=== PATIENT | male | born 1970 | race Caucasian/White ===

== ENCOUNTER 2016-11-20 19:37 | Emergency (ER) | payer OTHER ==
[2016-11-20] MEDS ORDERED: TORAdol 30 mg Injection IM ONE (20:11)
[2016-11-20] MEDS ORDERED: TORAdol 30 mg Injection ONE (20:13)
--- NOTE | 2016-11-20 20:14 | ERPHSYRPT ---
- History of Present Illness Time Seen by Provider: 11/20/16 20:08 Source: patient Patient Subjective Stated Complaint: Pt sts rt shoulder pain radiating into rt upper arm x 1.5 weeks. Pt denies specific trauma or injury. Pt describes as an ache. Rates pain 8/10. Pt sts decreased ROM due to pain. Triage Nursing Assessment: Pt alert, oriented, answers all questions appropriately. Skin p/w/d, resps non-labored. Pt ambulatory, steady gait noted. No obvious deformity noted. + radial pulses noted bilat. 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 He has one week hx of right shoulder pain. No specific fall or injury but pain worse with movement of the shoulder. No chest pain, cough, dyspnea. No fever or chills. He called to see Dr Yarbrough but no appt until end of month so he came here. He drove himself here. No hx of shoulder problems. No allergies. Occurred: last week Extremities Pain Location: shoulder: right Allergies/Adverse Reactions: No Known Drug Allergies Allergy (Unverified 11/20/16 20:13) Hx Tetanus, Diphtheria Vaccination/Date Given: Yes Hx Influenza Vaccination/Date Given: No Hx Pneumococcal Vaccination/Date Given: No - Review of Systems Constitutional: No Fever, No Chills Respiratory: No Cough, No Dyspnea Cardiac: No Chest Pain Musculoskeletal: Joint Pain (right shoulder), No Back Pain, No Neck Pain, No Injury Skin: No Rash Neurological: No Focal Weakness, No Headache, No Parasthesia - Past Medical History Pertinent Past Medical History: No - Past Surgical History Past Surgical History: Yes Gastrointestinal: Appendectomy, Hernia Repair Other Surgical History: ankle, wrist, fingers - Social History Smoking Status: Current every day smoker How long have you smoked: 20 yrs Exposure to second hand smoke: No Drug Use: none Patient Lives Alone: Yes - Nursing Vital Signs Nursing Vital Signs: Initial Vital Signs Temperature 98.7 F Temperature Source Oral Pulse Rate 84 Respiratory Rate 16 Blood Pressure 135/97 Pain Intensity 7 - Physical Exam General Appearance: alert Eyes, Ears, Nose, Throat Exam: moist mucous membranes Cardiovascular/Respiratory Exam: chest non-tender, normal breath sounds, regular rate/rhythm Abdominal Exam: non-tender, soft Back Exam: normal inspection, No vertebral tenderness Shoulder Exam: normal inspection, normal ROM (but painful), soft tissue tenderness (right shoulder) Elbow/Forearm Exam: normal inspection, non-tender Wrist Exam: normal inspection, non-tender Hand Exam: normal inspection, non-tender Neuro/Tendon Exam: normal sensation, normal motor functions Mental Status Exam: alert, oriented x 3, cooperative Skin Exam: warm, dry, No rash SpO2 Interpretation: normal SpO2: 100 Oxygen Delivery: Room Air - Course Nursing assessment & vital signs reviewed: Yes - Radiology Exams right shoulder X-ray Interpretation: Reviewed by me, Negative Ordered Tests: Active Orders 24 hr Category Date Time Status Cold Application STAT Care 11/20/16 20:11 Active SHOULDER Stat Exams 11/20/16 20:11 Taken Medication Summary Discontinued Medications Generic Name Dose Route Start Last Admin Trade Name Mikael PRN Reason Stop Dose Admin Ketorolac Tromethamine 60 mg 11/20/16 20:11 11/20/16 20:15 Toradol 30 Mg Injection IM 11/20/16 20:12 60 mg STAT ONE Administration Ketorolac Tromethamine Confirm 11/20/16 20:13 Toradol 30 Mg Injection Administered 11/20/16 20:14 Dose 60 mg .ROUTE .STK-MED ONE - Progress Progress Note: 11/20/16 21:10 The patient likely has some rotator cuff injury chronically but worse. Advised follow up to consider PT, ortho, or MRI. Rx motrin and norflex. Instr given. Counseled pt/family regarding: diagnosis, need for follow-up, rad results - Departure Time of Disposition: 21:10 Departure Disposition: Home Clinical Impression: Pain in right shoulder Qualifiers: Chronicity: unspecified Qualified Code(s): M25.511 - Pain in right shoulder Condition: Stable Critical Care Time: No Referrals: FELICIA BRANHAM [Primary Care Provider] - Instructions: Shoulder Pain Additional Instructions: No heavy lifting with right arm. Ice packs off and on. Rx motrin=ibuprofen. Rx norflex for muscle relaxer- no driving or operating machinery. Prescriptions: Ibuprofen 600 mg PO Q6H PRN PRN #24 tablet PRN Reason: Pain Orphenadrine Citrate 100 mg [Norflex 100 MG Tablet] 1 tab PO BID #10 tab
[2016-11-20] MEDS ORDERED: Norflex 100 MG Tablet PO ONE (21:09)
[2016-11-20 21:13] VITALS: O2SAT 100
[2016-11-20 21:27] VITALS: BP 129/70; PULSE 72
--- NOTE | 2016-11-21 08:35 | XRAY ---
Indication: Right shoulder pain for one week. No known injury. Comparison: None 3 views of the right shoulder demonstrate mild AC degenerative arthropathy. No other bony, articular, or soft tissue abnormalities.
== END 2016-11-20 21:27 | disposition home or self-care (01) ==
LOC: ED 19:37
DX: M25.511 Pain in right shoulder (principal)
CPT/HCPCS: 73030; 96372; 99283; J1885

== ENCOUNTER 2016-12-20 10:53 | Emergency (ER) | payer OTHER ==
[2016-12-20] MEDS ORDERED: Zofran 4 MG/2 ML VIAL IV ONE (11:17)
[2016-12-20] MEDS ORDERED: BENADRYL 50 MG/ML IV ONE (11:17)
[2016-12-20] MEDS ORDERED: Sodium Chloride 0.9% 1000 ML 1,000 ML IV STA (11:17)
[2016-12-20] MEDS ORDERED: TORAdol 30 mg Injection IV ONE (11:17)
[2016-12-20] MEDS ORDERED: Zofran 4 MG/2 ML VIAL ONE (11:27)
[2016-12-20] MEDS ORDERED: Sodium Chloride 0.9% 1000 ML 1,000 ML ONE (11:27)
[2016-12-20] MEDS ORDERED: TORAdol 30 mg Injection ONE (11:27)
[2016-12-20] MEDS ORDERED: BENADRYL 50 MG/ML ONE (11:27)
--- NOTE | 2016-12-20 11:28 | ERPHSYRPT ---
- History of Present Illness Time Seen by Provider: 12/20/16 11:12 Historian: patient Exam Limitations: clinical condition Patient Subjective Stated Complaint: LEFT SIDED FLANK PAIN/ LEFT SIDED ABD PAIN. Triage Nursing Assessment: ALERT X 3, RESPIRATIONS EVEN, NONLABORED, LEFT SIDED ABD TENDER WITH PALIPATION, BOWEL SOUNDS PRESENT IN ALL FOUR QUADS. Physician History: PATIENT WITH HISTORY OF KIDNEY STONES, EVALUATED AT [facility] LAST NIGHT WITH KIDNEY STONES. HAS ASSOCIATED NAUSEA. HAS PRESCRIPTIONS FOR MOTRIN, FLOMAX, UNABLE TO FILL PRESCRIPTION OF NORCO, HAD NO PHYSICIAN'S SIGNATURE. Timing/Duration: yesterday Quality: sharpness Abdominal Pain Onset Location: flank Pain Radiation: no radiation Severity of Pain-Max: severe Severity of Pain-Current: severe Modifying Factors: Improves With: nothing Associated Symptoms: denies symptoms Previous symptoms: same symptoms as today Allergies/Adverse Reactions: No Known Drug Allergies Allergy (Unverified 11/20/16 20:13) Hx Tetanus, Diphtheria Vaccination/Date Given: Yes Hx Influenza Vaccination/Date Given: No Hx Pneumococcal Vaccination/Date Given: No Immunizations Up to Date: Yes - Review of Systems Constitutional: No Fever, No Chills Eyes: No Symptoms Ears, Nose, & Throat: No Symptoms Respiratory: No Cough, No Dyspnea Cardiac: No Chest Pain, No Edema, No Syncope Abdominal/Gastrointestinal: No Abdominal Pain, No Nausea, No Vomiting, No Diarrhea Genitourinary Symptoms: Flank Pain, No Dysuria Musculoskeletal: No Symptoms, No Back Pain, No Neck Pain Skin: No Symptoms, No Rash Neurological: No Dizziness, No Focal Weakness, No Sensory Changes Psychological: No Symptoms Endocrine: No Symptoms All Other Systems: Reviewed and Negative - Past Medical History Pertinent Past Medical History: No Neurological History: No Pertinent History ENT History: No Pertinent History Cardiac History: No Pertinent History Respiratory History: No Pertinent History Endocrine Medical History: No Pertinent History Musculoskeletal History: No Pertinent History GI Medical History: No Pertinent History History: No Pertinent History Psycho-Social History: No Pertinent History Male Reproductive Disorders: No Pertinent History Other Medical History: KIDNEY STONES - Past Surgical History Past Surgical History: Yes Neuro Surgical History: No Pertinent History Cardiac: No Pertinent History Respiratory: No Pertinent History Gastrointestinal: Appendectomy, Hernia Repair Genitourinary: No Pertinent History Musculoskeletal: No Pertinent History Male Surgical History: No Pertinent History Other Surgical History: RIGHT ankle, RIGHT wrist, fingers - Social History Smoking Status: Current every day smoker How long have you smoked: 20 yrs Exposure to second hand smoke: No Drug Use: none Patient Lives Alone: Yes - Nursing Vital Signs Nursing Vital Signs: Initial Vital Signs Temperature 97.4 F Temperature Source Oral Pulse Rate 88 Respiratory Rate 18 Blood Pressure [] 133/69 Pain Intensity 10 - Physical Exam General Appearance: no apparent distress, alert Eye Exam: PERRL/EOMI, eyes nml inspection Ears, Nose, Throat Exam: normal ENT inspection, pharynx normal, moist mucous membranes Neck Exam: normal inspection, non-tender, supple, full range of motion Respiratory Exam: normal breath sounds, lungs clear, No respiratory distress Cardiovascular Exam: regular rate/rhythm, normal heart sounds Gastrointestinal/Abdomen Exam: soft, normal bowel sounds, tenderness (ADJACENT TO ANTERIOR ASPECT LEFT CVA), No mass Back Exam: normal inspection, normal range of motion, CVA tenderness (THERE IS LEFT CVA TENDERNESS), No vertebral tenderness Extremity Exam: normal inspection, normal range of motion, pelvis stable Neurologic Exam: alert, oriented x 3, cooperative, normal mood/affect, nml cerebellar function, sensation nml, No motor deficits Skin Exam: normal color, warm, dry Lymphatic Exam: adenopathy SpO2 Interpretation: normal SpO2: 97 Oxygen Delivery: Room Air - Course EKG Interpreted by Me: RATE, Sinus Rhythm, NORMAL AXIS - CT Exams Abdomen/Pelvis CT Interpretation: Discussed w/radiologist (FLUID DISTENDED STOMACH AND BOWEL LOOPS WITH FLUID LEVELING. R/O ILEUS VERSUS GASTROENTROCOLITIS. TINY CUL-DE- SAC FLUID PRESUMED PHYSIOLOGIC FROM RUPTURED/ LEAKING CYST, STABLE RIGHT LOBE HEPATIC HEMANAGIOMA) Ordered Tests: Active Orders 24 hr Category Date Time Status IV Insertion STAT Care 12/20/16 11:17 Active Oxygen-ED Only NASAL CANNULA 2 lpm Care 12/20/16 11:55 Active BMP Stat Lab 12/20/16 11:15 Completed CBC W DIFF Stat Lab 12/20/16 11:15 Completed UA W/ MICROSCOPIC Stat Lab 12/20/16 11:18 Completed Urine Triage Profile Stat Lab 12/20/16 11:21 Completed Medication Summary Discontinued Medications Generic Name Dose Route Start Last Admin Trade Name Freq PRN Reason Stop Dose Admin Diphenhydramine HCl 25 mg 12/20/16 11:17 12/20/16 11:28 Benadryl 50 Mg/Ml IV 12/20/16 11:18 25 mg STAT ONE Administration Diphenhydramine HCl Confirm 12/20/16 11:27 Benadryl 50 Mg/Ml Administered 12/20/16 11:28 Dose 50 mg .ROUTE .STK-MED ONE Hydromorphone HCl 1 mg 12/20/16 11:55 12/20/16 12:03 Dilaudid 1 Mg/Ml Injection IV 12/20/16 11:56 1 mg STAT ONE Administration Hydromorphone HCl Confirm 12/20/16 12:03 Dilaudid 1 Mg/Ml Injection Administered 12/20/16 12:04 Dose 1 mg .ROUTE .STK-MED ONE Hydromorphone HCl 1 mg 12/20/16 13:58 12/20/16 14:02 Dilaudid 1 Mg/Ml Injection IV 12/20/16 13:59 1 mg STAT ONE Administration Hydromorphone HCl Confirm 12/20/16 14:02 Dilaudid 1 Mg/Ml Injection Administered 12/20/16 14:03 Dose 1 mg .ROUTE .STK-MED ONE Sodium Chloride 1,000 mls @ 999 mls/hr 12/20/16 11:17 12/20/16 11:28 Sodium Chloride 0.9% 1000 Ml IV 12/20/16 12:17 999 mls/hr .Q1H1M STA Administration Sodium Chloride Confirm 12/20/16 11:27 Sodium Chloride 0.9% 1000 Ml Administered 12/20/16 11:28 Dose 1,000 mls @ ud .ROUTE .STK-MED ONE Ketorolac Tromethamine 30 mg 12/20/16 11:17 12/20/16 11:28 Toradol 30 Mg Injection IV 12/20/16 11:18 30 mg STAT ONE Administration Ketorolac Tromethamine Confirm 12/20/16 11:27 Toradol 30 Mg Injection Administered 12/20/16 11:28 Dose 30 mg .ROUTE .STK-MED ONE Ondansetron HCl 4 mg 12/20/16 11:17 12/20/16 11:28 Zofran 4 Mg/2 Ml Vial IV 12/20/16 11:18 4 mg STAT ONE Administration Ondansetron HCl Confirm 12/20/16 11:27 Zofran 4 Mg/2 Ml Vial Administered 12/20/16 11:28 Dose 4 mg .ROUTE .K-MED ONE Lab/Rad Data: Laboratory Result Diagrams 12/20/16 11:15 12/20/16 11:15 Laboratory Results 12/20/16 12/20/16 12/20/16 Range/Units 11:21 11:18 11:15 WBC (4.0-10.5) K/mm3 RBC (4.1-5.6) M/mm3 Hgb (12.5-18.0) gm/dl Hct (42-50) % MCV (78-100) fl MCH (26-32) pg MCHC (32-36) g/dl RDW (11.5-14.0) % Plt Count (150-450) K/mm3 MPV (6-9.5) fl Gran % (36.0-66.0) % Lymphocytes % (24.0-44.0) % Monocytes % (0.0-12.0) % Eosinophils % (0.00-5.0) % Basophils % (0.0-0.4) % Basophils # (0-0.4) Sodium 141 (136-145) mEq/L Potassium 3.9 (3.5-5.1) mEq/L Chloride 103 (98-107) mEq/L Carbon Dioxide 26.8 (21-32) mEq/L Anion Gap 14.8 (5-15) MEQ/L BUN 20 (9-20) mg/dL Creatinine 1.58 H (0.55-1.30) mg/dl Estimated GFR 50 ML/MIN Glucose 117 H (70-110) MG/DL Calcium 8.8 (8.5-10.1) mg/dL Ur Collection Type VOID Urine Color YELLOW (YELLOW) Urine Appearance HAZY (CLEAR) Urine pH 6.0 (5-6) Ur Specific [place] 1.025 (1.005-1.025) Urine Protein 30 (Negative) Urine Glucose (UA) NEGATIVE (NEGATIVE) mg/dL Urine Ketones NEGATIVE (NEGATIVE) Urine Nitrite NEGATIVE (NEGATIVE) Urine Bilirubin NEGATIVE (NEGATIVE) Urine Urobilinogen 0.2 (0-1) mg/dL Urine WBC (Auto) NEGATIVE (NEGATIVE) Urine RBC (Auto) TRACE-LYSED (0-5) Bunny/ul Urine Microscopic RBC 2-5 (0-2) /HPF Urine Microscopic WBC 2-5 (0-5) /HPF Ur Epithelial Cells FEW (FEW) /HPF Urine Bacteria FEW (NEGATIVE) /HPF Urine Mucus MODERATE (NEGATIVE) /HPF Urine Opiates Level POS. (NEGATIVE) Ur Methadone NEG. (NEGATIVE) Urine Barbiturates NEG. (NEGATIVE) Ur Phencyclidine (PCP) NEG. (NEGATIVE) Urine Amphetamine POS. (NEGATIVE) U Benzodiazepine Level NEG. (NEGATIVE) Urine Cocaine NEG. (NEGATIVE) Urine Marijuana (THC) NEG. (NEGATIVE) Specimen Received 12/20/16 1130 12/20/16 Range/Units 11:15 WBC 11.8 H (4.0-10.5) K/mm3 RBC 5.27 (4.1-5.6) M/mm3 Hgb 15.5 (12.5-18.0) gm/dl Hct 47.8 (42-50) % MCV 90.7 (78-100) fl MCH 29.4 (26-32) pg MCHC 32.4 (32-36) g/dl RDW 13.4 (11.5-14.0) % Plt Count 249 (150-450) K/mm3 MPV 9.6 H (6-9.5) fl Gran % 84.8 H (36.0-66.0) % Lymphocytes % 8.8 L (24.0-44.0) % Monocytes % 6.3 (0.0-12.0) % Eosinophils % 0.0 (0.00-5.0) % Basophils % 0.1 (0.0-0.4) % Basophils # 0.01 (0-0.4) Sodium (136-145) mEq/L Potassium (3.5-5.1) mEq/L Chloride (98-107) mEq/L Carbon Dioxide (21-32) mEq/L Anion Gap (5-15) MEQ/L BUN (9-20) mg/dL Creatinine (0.55-1.30) mg/dl Estimated GFR ML/MIN Glucose (70-110) MG/DL Calcium (8.5-10.1) mg/dL Ur Collection Type Urine Color (YELLOW) Urine Appearance (CLEAR) Urine pH (5-6) Ur Specific [place] (1.005-1.025) Urine Protein (Negative) Urine Glucose (UA) (NEGATIVE) mg/dL Urine Ketones (NEGATIVE) Urine Nitrite (NEGATIVE) Urine Bilirubin (NEGATIVE) Urine Urobilinogen (0-1) mg/dL Urine WBC (Auto) (NEGATIVE) Urine RBC (Auto) (0-5) Bunny/ul Urine Microscopic RBC (0-2) /HPF Urine Microscopic WBC (0-5) /HPF Ur Epithelial Cells (FEW) /HPF Urine Bacteria (NEGATIVE) /HPF Urine Mucus (NEGATIVE) /HPF Urine Opiates Level (NEGATIVE) Ur Methadone (NEGATIVE) Urine Barbiturates (NEGATIVE) Ur Phencyclidine (PCP) (NEGATIVE) Urine Amphetamine (NEGATIVE) U Benzodiazepine Level (NEGATIVE) Urine Cocaine (NEGATIVE) Urine Marijuana (THC) (NEGATIVE) Specimen Received - Progress Progress: pain not gone completely Progress Note: 12/20/16 11:46 PATIENT ADMINISTERED IV NORMAL SALINE 1 LITER BOLUS OVER 1 HOUR, ZOFRAN 4MG, BENADRYL 25MG, TORADOL 30MG IV, THE ABDOMINAL/PELVIS CT WITHOUT IV CONTRAST C/W A PROXIMAL LEFT URETERAL 4MM OBSTRUCTIVE CALCULUS WITH MID TO MODERATE LEFT HYDRONEPHROSIS ON 12/20/2016 AT 0212 AT [facility]. Discussed with : Gabino Branham (AT 1200 ACCEPTS TRANSFER TO [facility]) - Departure Time of Disposition: 14:00 Departure Disposition: Transfer Clinical Impression: LEFT URETERAL STONE WITH HYDRONEPHROSIS, INTRACTABLE ABDOMINAL PAIN Condition: Stable Critical Care Time: No Referrals: FELICIA BRANHAM [Primary Care Provider] -
[2016-12-20 11:42] LABS: BASOPHIL % 0.1 % (0.0-0.4); Granulocytes % 84.8 % (36.0-66.0); Lymphocytes % 8.8 % (24.0-44.0); Mean Cell Volume 90.7 fl (78-100); Mean Corpuscular Hemoglobin 29.4 pg (26-32); Mean Platelet Volume 9.6 fl (6-9.5); Monocytes % 6.3 % (0.0-12.0); Platelet Count 249 K/mm3 (150-450); Red Blood Count 5.27 M/mm3 (4.1-5.6); Red Cell Distribution Width 13.4 % (11.5-14.0); White Blood Count 11.8 K/mm3 (4.0-10.5)
[2016-12-20 11:51] LABS: ANION GAP 14.8 MEQ/L (5-15); Carbon Dioxide 26.8 mEq/L (21-32); Potassium 3.9 mEq/L (3.5-5.1)
[2016-12-20 11:54] LABS: Collection Type VOID
[2016-12-20 11:55] LABS: COMPLETE URINE MICROSCOPIC? YES
[2016-12-20] MEDS ORDERED: Hydromorphone 1 mg/ml Ampule IV ONE ×2 (11:55→13:58)
[2016-12-20 12:03] LABS: Mucus MODERATE /HPF (NEGATIVE)
[2016-12-20] MEDS ORDERED: Hydromorphone 1 mg/ml Ampule ONE ×2 (12:03→14:02)
[2016-12-20 12:04] LABS: Bacteria FEW /HPF (NEGATIVE); Epithelial Cells FEW /HPF (FEW)
[2016-12-20 13:58] VITALS: BP 133/69; PULSE 88
[2016-12-20 14:07] VITALS: O2SAT 97
== END 2016-12-20 14:10 | disposition short-term general hospital (02) ==
LOC: ED 10:53
DX: N13.2 Hydronephrosis with renal and ureteral calculous obstruction (principal); R10.9 Unspecified abdominal pain; R11.0 Nausea
CPT/HCPCS: 36000; 36415; 80048; 80307; 81000; 85025; 96360; 96361; 96374; 96375; 99284; J1170; J1200; J1885; J2405